=== PATIENT | male | born 1970 | race Caucasian/White ===

== ENCOUNTER 2021-04-16 07:22 | Emergency (ER) | payer BC, SELFPAY ==
--- NOTE | ~2021-04-16 | CT_ITS ---
EXAMINATION: CT abdomen pelvis wo con DATE: 04/16/2021 08:15 INDICATION: Right costovertebral angle tenderness. TECHNIQUE: Computed tomography (CT) of the abdomen and pelvis was performed without intravenous contr ast. Automated exposure control and iterative reconstruction technique were employed. The dose-length product was 318.52 mGy-cm. COMPARISON: None. FINDINGS: The visualized portions of the lung bases demonstrate mild atelectasis. No pleural effusion . The heart size is normal. No pericardial effusion. The liver, gallbladder, spleen, pancreas, adrena l glands, and kidneys are normal. There is no urolithiasis. The appendix is normal. There are no dila raúl loops of bowel. There is an umbilical hernia containing fat. There are no pathologically enlarged lymph nodes. There is no free intraperitoneal fluid. There are bilateral hydroceles. There is mild t horacic spondylosis and moderate lumbar spondylosis. IMPRESSION: 1. Umbilical hernia containing fat. 2. Bilateral hydroceles. Reviewed, dictated and finalized at location A. AR ATTENDANT
[2021-04-16 07:39] VITALS: BP 144/88; PULSE 84; RESP 20; TEMP 36.2; O2SAT 96
[2021-04-16] MEDS: KETOROLAC (*BKC) 60 MG/2 ML VIAL IM (07:59)
[2021-04-16 08:08] LABS: Basophils Absolute Auto 0.11 K/mm3 (0.00-0.10); Basophils Percent Auto 1.2 % (0.0-1.0); Eosinophils Absolute Auto 0.39 K/mm3 (0.02-0.50); Eosinophils Percent Auto 4.3 % (1.0-6.0); Hematocrit 44.3 % (40.0-54.0); Hemoglobin 15.2 g/dL (14.0-18.0); Immature Granulocyte Absolute 0.02 K/mm3 (0.00-0.00); Immature Granulocyte Percent A 0.2 % (0.0-0.0); Immature Platelet Fraction Pct 1.4 % (1.0-7.0); Lymphocytes Absolute Auto 2.38 K/mm3 (1.10-4.50); Lymphocytes Percent Auto 26.1 % (18.0-42.0); Mean Corpuscular HGB Conc 34.3 g/dL (32.0-36.0); Mean Corpuscular Hemoglobin 31.9 pg (27.0-31.0); Mean Corpuscular Volume 92.9 fL (78.0-102.0); Monocytes Absolute Auto 0.98 K/mm3 (0.10-0.90); Monocytes Percent Auto 10.8 % (2.0-11.0); Neutrophils Absolute Auto 5.2 K/mm3 (1.7-7.2); Neutrophils Percent Auto 57.4 % (50.0-70.0); Platelet Count Result 530 K/mm3 (150-420); Red Blood Count 4.77 M/mm3 (4.70-6.10); Red Cell Distribution Width 12.8 % (11.6-14.4); White Blood Count 9.1 K/mm3 (4.8-10.8)
[2021-04-16 08:13] LABS: Appearance Urine Clear (Clear); Bilirubin Urine Negative (Negative); Color Urine Yellow (Yellow); Glucose Urine UA Negative (Negative); Ketones Urine Negative (Negative); Leukocyte Esterase Ur Negative (Negative); Nitrate Urine Negative (Negative); Protein Urine Negative (Negative); Specific Grav Ur >= 1.030 (1.010-1.020); Urobilinogen Urine 0.2 mg/dL (0.2-1.0); pH Urine 5.5 (5.0-8.0)
[2021-04-16 08:19] LABS: Add Urine Microscopic? YES; Blood Urine Trace-Intact (Negative)
[2021-04-16 08:20] LABS: Bacteria Urine None seen /hpf; Squamous Epithelial Cell Urine Rare /hpf (Few); WBC Urine 0-3 /hpf (0-3)
--- NOTE | 2021-04-16 08:36 | ED.BACK ---
HPI - Back Pain/Injury General Chief Complaint: Urogenital-Male Stated Complaint: BACK PAIN Time Seen by Provider: 04/16/21 07:25 Source: patient and RN notes reviewed Mode of arrival: ambulatory Limitations: no limitations History of Present Illness MD elicited complaint: back pain Pertinent past history: prior back pain Onset (ago): day(s) (1) Timing: constant Severity: mild Pain scale (0-10): 6 Similar Symptoms Previously: Yes Quality: dull and aching Location: lumbar spine Radiation: none Exacerbating factors: movement Relieving factors: none Associated symptoms: denies other symptoms Work related injury: No Related Data Allergies Allergy/AdvReac Type Severity Reaction Status Date / Time No Known Allergies Allergy Verified 04/16/21 07:49 Review of Systems Review of Systems: All systems reviewed & are unremarkable except as noted in HPI and below Musculoskeletal: Musculoskeletal: Reports back pain [facility] Past Medical History Medical History (Updated 05/07/21 @ 19:31 by Nicolas Higgins MD) Back ache Exam Const: General: no acute distress and alert Limitations: no limitations HENMT: Head: normal to inspection Ears: external ears normal and TM's normal bilaterally General nose exam: Normal external nose present and Normal nares present Mouth: Yes moist mucous membranes Eyes: Conjunctivae: conjunctivae normal Pupils: Equal, round and reactive pupils present EOM: EOMs intact bilaterally Neck: Neck: normal visual inspection Chest: Chest palpation & inspection: normal inspection of the chest Resp: Effort & Inspection: normal respiratory effort Auscultation: clear to auscultation bilaterally Cardio: Rate: regular rate Rhythm: regular rhythm GI: Auscultation: normal bowel sounds : General: Yes bladder normal to palpation and Yes no CVA tenderness Male General Exam: Yes normal external exam Testes: Testes normal Back/Spine/Pelvis: Back: no CVA tenderness Skin: General skin exam: normal color Rashes: no rashes Neuro: General: patient oriented x3, moves all extremities, no meningeal signs, no focal motor deficits and CN's II-XI intact bilaterally Extrem: General: normal to inspection and no pedal edema Psych: Mental Status: mental status grossly normal Affect: normal affect Attitude: cooperative Thought content: Yes Normal thought content present Course Course Emergency Course: Pt was stable in the ED, less pain-ful. Reevaluation(s) Reevaluation #1: VSS. Pt was improved in the ED. Date: 04/16/21 Time: 08:21 Vital Signs Vital signs: Vital Signs Temperature 36.2 C L 04/16/21 07:39 Pulse Rate 84 04/16/21 07:39 Respiratory Rate 20 04/16/21 07:39 Blood Pressure 144/88 H 04/16/21 07:39 Pulse Oximetry 96 04/16/21 07:39 Temperature 36.7 C 04/16/21 09:01 Pulse Rate 76 04/16/21 09:01 Respiratory Rate 20 04/16/21 09:01 Blood Pressure 116/100 H 04/16/21 09:01 Pulse Oximetry 92 04/16/21 09:01 MDM - Back Pain/Injury Differential Diagnosis Differential diagnosis: Likely lumbar radiculopathy, sciatica and strain of lumbar region Medical Records Attestation: I reviewed the patient's medical records. Lab Data Result diagrams: 04/16/21 08:02 Labs: Lab Results 04/16/21 04/16/21 Range/Units 07:50 08:02 WBC 9.1 (4.8-10.8) K/mm3 RBC 4.77 (4.70-6.10) M/mm3 Hgb 15.2 (14.0-18.0) g/dL Hct 44.3 (40.0-54.0) % MCV 92.9 (78.0-102.0) fL MCH 31.9 H (27.0-31.0) pg MCHC 34.3 (32.0-36.0) g/dL RDW 12.8 (11.6-14.4) % Plt Count 530 H (150-420) K/mm3 MPV 9.0 (8.7-11.0) fl Immature Gran % (Auto) 0.2 H (0.0-0.0) % Neut % (Auto) 57.4 (50.0-70.0) % Lymph % (Auto) 26.1 (18.0-42.0) % [place] % (Auto) 10.8 (2.0-11.0) % Eos % (Auto) 4.3 (1.0-6.0) % Baso % (Auto) 1.2 H (0.0-1.0) % Lymph # (Auto) 2.38 (1.10-4.50) K/mm3 [place] # (Auto) 0.98 H (0.10-0.90) K/mm3 Eos # (Auto) 0.39 (0.02-0
[2021-04-16 09:01] VITALS: BP 116/100; PULSE 76; RESP 20; TEMP 36.7; O2SAT 92
== END 2021-04-16 09:05 | disposition home or self-care (01) ==
PROVIDERS: Emergency Provider Emergency Medicine
DX: M54.50 Low back pain, unspecified (principal)
CPT/HCPCS: 36415; 74176; 81001; 85025; 85055; 96372; 99283; 99284; J1885